=== PATIENT | female | born 1975 | race Caucasian/White ===

== ENCOUNTER → 2016-10-29 | Outpatient (CLI) | payer MEDICAID | END | disposition home or self-care (01) | LOC: US 10:07 | PROVIDERS: ATTEND Family Medicine | DX: N60.01 Solitary cyst of right breast (principal) | CPT/HCPCS: 76642 ==

== ENCOUNTER 2017-05-06 13:03 | Emergency (ER) | payer MEDICAID ==
[~2017-05-06] VITALS: Ht 162.6 cm; Wt 33.0 kg
[2017-05-06 14:22] LABS: BASOPHILS % 0.2 % (0.0-2.0); EOSINOPHILS % 0.1 % (0.0-5.0); HEMATOCRIT. 40.2 % (36.0-48.0); HEMOGLOBIN. 13.6 g/dL (12.0-16.0); LYMPHOCYTES % 12.6 % (20.0-50.0); MEAN CORPUSCULAR HEMOGLOBIN 30.8 pg (28.0-32.0); MEAN CORPUSCULAR VOLUME 90.7 fL (81.0-99.0); MEAN PLATELET VOLUME 9.8 fl (7.4-10.4); MONOCYTES % 5.7 % (2.0-8.0); NEUTROPHILS % 81.4 % (40.0-76.0); PLATELET 241 x1000/uL (130-400); RED BLOOD CELL COUNT 4.43 mill/uL (4.2-5.4)
[2017-05-06 14:28] LABS: PROTHROMBIN TIME 10.8 sec (9.4-11.6)
[2017-05-06 14:32] LABS: CHLORIDE 107 mEq/L (98-107)
[2017-05-06 14:38] LABS: CARBON DIOXIDE 28 mEq/L (21-32)
[2017-05-06] MEDS ORDERED: VALPROATE SODIUM 500 MG in SODIUM CHLORIDE 0.9% 100 ML IV SCH (15:45)
[2017-05-06] MEDS ORDERED: CARBAMAZEPINE 200MG TABLET PO ONE (15:45)
[2017-05-06 18:30] VITALS: BP 97/59
== END 2017-05-06 18:33 | disposition home or self-care (01) ==
LOC: ER 13:03
DX: Z43.1 Encounter for attention to gastrostomy (principal); G80.9 Cerebral palsy, unspecified; R56.9 Unspecified convulsions
CPT/HCPCS: 36415; 49450; 80053; 80156; 80165; 85025; 85610; 96365; 99284; C1769; J3490; J7050; Z7610; L8514; Q9963

== ENCOUNTER 2017-09-18 15:53 | Emergency (ER) | payer MEDICAID ==
[~2017-09-18] VITALS: Ht 152.4 cm; Wt 34.0 kg
[2017-09-18] MEDS ORDERED: CALC320T8 PO (16:12)
[2017-09-18] MEDS ORDERED: NUTR150016 PO (16:12)
[2017-09-18] MEDS ORDERED: ACET325S17 PO (16:12)
[2017-09-18] MEDS ORDERED: RUFI400T PO (16:12)
[2017-09-18] MEDS ORDERED: LEVE500T19 PO (16:12)
[2017-09-18] MEDS ORDERED: CARB300C6 PO (16:12)
[2017-09-18] MEDS ORDERED: TRIH2TAB3 PO (16:12)
[2017-09-18] MEDS ORDERED: ONDA4TAB5 PO (16:12)
[2017-09-18] MEDS ORDERED: SENN-169 PO (16:12)
[2017-09-18] MEDS ORDERED: FERR220S12 PO (16:12)
[2017-09-18] MEDS ORDERED: GABA-531 PO (16:12)
[2017-09-18] MEDS ORDERED: LACO50TA2 PO (16:12)
[2017-09-18] MEDS ORDERED: LIDOCAINE HCL 1% 20ML VIAL (Pyxis) INJ MC ONE (20:30)
[2017-09-18] MEDS ORDERED: ACETAMINOPHEN 160MG/5ML UDC PO ONE (21:00)
[2017-09-18] MEDS ORDERED: SULFAMETHOXAZOLE/TRIMETHOPRIM 800/160MG TABLET PO ONE (21:00)
[2017-09-18 21:15] VITALS: BP 98/52
[2017-09-18] MEDS ORDERED: ACETAMINOPHEN 325MG TABLET PO NR (21:15)
== END 2017-09-18 21:29 | disposition home or self-care (01) ==
LOC: ER 16:18
DX: H60.02 Abscess of left external ear (principal); R56.9 Unspecified convulsions; Z99.3 Dependence on wheelchair; Z93.1 Gastrostomy status
CPT/HCPCS: 69000; 99284; J3490